=== PATIENT | female | born 1955 | race American Indian/Alaskan Native ===

== ENCOUNTER 2016-02-15 07:25 | Day surgery (SDC) | payer OTHER ==
[2016-02-15] MEDS ORDERED: ECOTRIN PO ONE ×2 (07:41→07:52)
[2016-02-15] MEDS ORDERED: NACL 0.9% 500 ML 500 ML ONE (07:52)
[2016-02-15] MEDS ORDERED: NACL 0.9% 500 ML 500 ML IV SCH (08:00)
[2016-02-15 08:12] LABS: Basophils % (Auto) 0.8 % (0.0-1.8); Eosinophils % (Auto) 1.1 % (0.0-4.3); Hematocrit 43.9 % (30.3-42.9); Hemoglobin 14.6 gm/dl (10.1-14.3); Mean Corpuscular HGB Conc 33 % (30-34); Mean Corpuscular Hemoglobin 32 pg (28-32); Mean Corpuscular Volume 95 fl (79-97); Platelet Count 208 K/mm3 (140-440); White Blood Count 4.7 K/mm3 (4.5-11.0)
[2016-02-15 08:25] LABS: INR 0.97 (0.87-1.13)
[2016-02-15 08:50] LABS: Anion Gap 17 mmol/L; BUN/Creatinine Ratio 13.33; Blood Urea Nitrogen 12 mg/dL (7-17); Calcium 10.3 mg/dL (8.4-10.2); Carbon Dioxide 23 mmol/L (22-30); Chloride 104.1 mmol/L (98-107); Glucose 96 mg/dL (65-100); Potassium 4.3 mmol/L (3.6-5.0); Sodium 140 mmol/L (137-145)
[2016-02-15] MEDS ORDERED: HEPARIN/NS 5000 UNIT/500ML(CATH LAB) 1,000 ML IR ONE (10:35)
[2016-02-15] MEDS: NITROGLYCERIN SYRINGE 3 ML ONE ×2 (11:00→11:27)
[2016-02-15] MEDS: VERSED ONE ×2 (11:04→11:19)
[2016-02-15] MEDS: SUBLIMAZE ONE ×3 (11:04→11:25)
[2016-02-15] MEDS: HEPARIN 10,000 UNITS/10 ML ONE ×2 (11:05→11:27)
[2016-02-15] MEDS: XYLOCAINE 2% INFILTRATI ONE ×2 (11:05→11:23)
[2016-02-15] MEDS: CALAN ONE ×2 (11:05→11:27)
--- NOTE | 2016-02-15 11:58 | Discharge Summary ---
Short Stay Discharge Plan Activity: advance as tolerated Weight Bearing Status: Full Weight Bearing Diet: low fat, low cholesterol, low salt Wound: keep clean and dry Special Instructions: smoking cessation, no heavy lifting (3 days) Follow up with: ZOIE HEART JR, MD [Primary Care Provider] - 7 Days CRISTO HOLLIDAY MD [Staff Physician] - 7 Days
[2016-02-15] MEDS ORDERED: NACL 0.9% 1000 ML 1,000 ML IV SCH (12:00)
--- NOTE | 2016-02-15 12:02 | Cardiac Catherization Report ---
CARDIAC CATHETERIZATION REASON FOR PROCEDURE: The patient is preoperative cardiac assessment for carotid surgery. She was referred for cardiac catheterization due to an abnormal thallium stress test. PROCEDURE: The patient was prepped and draped in a sterile fashion after informed consent. The right radial artery was entered using the Seldinger technique followed by placement of a 5-[place] hydrophilic sheath. Routine radial cocktail was administered via the sheath. Left coronary angiography was performed using a #3.5 left Y[place]asta catheter. A #4 right Yokasta was used for right coronary angiography. The right coronary catheter was also used for left ventricular angiography. The catheters were removed, sheaths removed, and hemostasis achieved using manual compression. The patient was returned to the postprocedure unit in stable condition. There were no complications. FINDINGS: HEMODYNAMICS: Left ventricle end diastolic pressure was 18, following coronary angiography. Ascending aortic pressure 143/78. There was no significant pressure gradient on pullback across the aortic valve. CORONARY ANGIOGRAPHY: There was mild diffuse coronary calcification. The left main coronary artery contained a long, tapering, 10-20% stenosis of its mid to distal segment. The left anterior descending artery contained diffuse mild atherosclerosis of its proximal and mid segments. There was mild diffuse atherosclerosis of the diagonal branches. The circumflex artery contained a 30-50% ostial stenosis, followed by mild to moderate atherosclerosis of its proximal segment. The right coronary artery was dominant. This vessel contained a 40-50% stenosis of its mid segment. There was another 40-50% stenosis of the distal AV groove segment, midway between the acute margin and the origin of the right posterior descending branch. Following that, there was diffuse mild to moderate atherosclerosis of the distal right coronary segments. It will be noted that the patient had a very small caliber right and left coronary vessels. Left ventricular systolic function was normal, ejection fraction 60-65%. CONCLUSION: 1. Diffuse mild to moderate, nonobstructive coronary artery disease as above. 2. Normal left ventricular systolic function, ejection fraction 60-65%. RECOMMENDATION: Aggressive risk factor modification and medical therapy. JOB# [id number] CA/NTS
[2016-02-15 14:32] VITALS: BP 113/60
== END 2016-02-15 14:45 | disposition home or self-care (01) ==
LOC: OPU 07:25
PROVIDERS: ATTEND Internal Medicine Cardiovascular Disease
DX: I25.10 Atherosclerotic heart disease of native coronary artery without angina pectoris (principal); I10 Essential (primary) hypertension; I65.23 Occlusion and stenosis of bilateral carotid arteries; Z82.49 Family history of ischemic heart disease and other diseases of the circulatory system; Z87.891 Personal history of nicotine dependence
CPT/HCPCS: 36415; 80048; 85025; 85610; 85730; 93005; 93010; 93458; C1894; J1644; J2250; J3010; J7040; Q9967

== ENCOUNTER 2016-02-29 17:23 | Emergency (ER) | payer OTHER ==
--- NOTE | 2016-02-29 19:59 | Emergency Department Report ---
Chief Complaint: Extremity Injury, Lower Stated Complaint: R/L FOOT PAIN/SOB Time Seen by Provider: 02/29/16 19:54 - HPI History of Present Illness: 60-year-old female comes in with sharp pain into both legs since last night worse today patient reports that the pain is in her right foot and ankle thigh and groin hurting states the left foot ankles hurting as well as the left foot. Patient reports that she is been having shortness of breathing and has been using her rescue inhaler more often and she feels she should. She reports she is out of her maintenance inhaler and needing a refill. - Exam Vital Signs: Vital Signs 02/29/16 18:16 Temperature 98.3 F Pulse Rate 85 Respiratory 18 Rate Blood Pressure 153/79 O2 Sat by Pulse 100 Oximetry Physical Exam: Alert oriented 3 she appears to be uncomfortable. Cardiovascular S1-S2 regular rate and rhythm respiratory clear to auscultation bilateral MSE screening note: Focused history and physical exam performed. Due to findings the following was ordered: He she'll be evaluated in the main ER by the MD. ED Disposition for MSE Condition: Stable
[2016-03-01 06:54] LABS: Basophils % (Auto) 0.5 % (0.0-1.8); Eosinophils % (Auto) 1.5 % (0.0-4.3); Hematocrit 42.3 % (30.3-42.9); Hemoglobin 13.9 gm/dl (10.1-14.3); Mean Corpuscular HGB Conc 33 % (30-34); Mean Corpuscular Hemoglobin 32 pg (28-32); Mean Corpuscular Volume 97 fl (79-97); Platelet Count 217 K/mm3 (140-440); Red Blood Count 4.38 M/mm3 (3.65-5.03); Red Cell Distribution Width 14.8 % (13.2-15.2); White Blood Count 4.4 K/mm3 (4.5-11.0)
[2016-03-01 06:57] LABS: Anion Gap 14 mmol/L; Blood Urea Nitrogen 10 mg/dL (7-17); Calcium 10.3 mg/dL (8.4-10.2); Carbon Dioxide 25 mmol/L (22-30); Chloride 105.8 mmol/L (98-107); Glucose 102 mg/dL (65-100); Potassium 4.2 mmol/L (3.6-5.0); Sodium 141 mmol/L (137-145)
[2016-03-01 07:02] LABS: Alanine Aminotransferase 13 units/L (7-56); Albumin 4.2 g/dL (3.9-5); Albumin/Globulin Ratio 1.4 %; Alkaline Phosphatase 66 units/L (35-129); Bilirubin,Total 0.2 mg/dL (0.1-1.2); Total Protein 7.1 g/dL (6.3-8.2)
[2016-03-01 07:04] LABS: Bilirubin,Direct < 0.2 mg/dL (0-0.2)
[2016-03-01 07:05] LABS: INR 1.04 (0.87-1.13)
[2016-03-01 07:06] LABS: Partial Thromboplastin Time 38.4 Sec. (24.2-36.6)
[2016-03-01 07:43] LABS: Bacteria,Urine 1+ /HPF (Negative); Bilirubin,Urine NEG (Negative); Blood,Urine NEG (Negative); Ketones,Urine NEG (Negative); Leukocyte Esterase,Urine NEG (Negative); Mucus,Urine FEW /HPF; Nitrite,Urine NEG (Negative); Protein,Urine <15 mg/dL mg/dL (Negative); Urobilinogen,Urine < 2.0 mg/dL (<2.0)
--- NOTE | 2016-03-01 09:34 | Emergency Department Report ---
ED General Adult HPI - General Chief complaint: Extremity Injury, Lower Stated complaint: R/L FOOT PAIN/SOB Time Seen by Provider: 02/29/16 19:54 Source: patient Mode of arrival: Ambulatory Limitations: Physical Limitation - History of Present Illness Initial comments: The patient complains of diffuse pain to include her legs particularly. She states that this is mostly bothering her right leg more than her left leg. Apparently she stated that her "legs were going out on me" in triage. However she denies any acute weakness. She denies dizziness. She denies headache. She denies vertigo. She has not noticed any increased swelling of her legs change in color or paresthesias. At the time of my encounter, she is really not complaining of any acute pain. She states that she would like to restart her gabapentin. The patient is pending carotid endarterectomy. She has had a vascular procedure of her left leg. She states that the right leg is planned after her carotid procedure. She is a regular patient of Dr. Bonds. She states that she talked to Dr. Bonds about her gabapentin in the past and he wanted to hold it for now. He does additionally have a history of dementia. -: days(s) Location: lower extremity (right greater than left) Radiation: non-radiation Severity scale (0 -10): 0 Quality: aching Consistency: intermittent Improves with: none Worsens with: none Associated Symptoms: denies other symptoms Treatments Prior to Arrival: none - Related Data Home Medications Medication Instructions Recorded Confirmed Last Taken Diltiazem [Cardizem] 30 mg PO BID 12/07/15 03/01/16 02/14/16 30mg Gabapentin 300 mg PO QHS 12/07/15 03/01/16 02/14/16 300mg Plavix 75 mg PO DAILY 12/07/15 03/01/16 02/14/16 75mg Tizanidine HCl [tiZANidine] 1 tab PO QHS 02/15/16 03/01/16 02/14/16 4mg AtorvaSTATin [Lipitor] 40 mg PO QDAY 03/01/16 03/01/16 Unknown Bupropion HCl [Bupropion HCl Sr] 150 mg PO BID 03/01/16 03/01/16 Unknown Cilostazol [Pletal] 100 mg PO BID 03/01/16 03/01/16 Unknown Previous Rx's Medication Instructions Recorded Last Taken Type Aspirin EC [Aspirin Enteric Coated 81 mg PO QDAY #30 tablet. 04/17/15 Rx TAB] 81mg Cilostazol [Pletal] 100 mg PO BID #60 tablet 04/17/15 02/14/16 Rx 100mg Gabapentin [Gralise] 300 mg PO QHS #14 tab.er.24h 03/01/16 Unknown Rx Allergies Allergy/AdvReac Type Severity Reaction Status Date / Time No Known Allergies Allergy Verified 02/29/16 18:20 ED Review of Systems ROS: Stated complaint: R/L FOOT PAIN/SOB Other details as noted in HPI Constitutional: denies: chills, fever Eyes: denies: eye pain, eye discharge, vision change ENT: denies: ear pain, throat pain Respiratory: denies: cough, shortness of breath, wheezing Cardiovascular: denies: chest pain, palpitations Endocrine: no symptoms reported Gastrointestinal: denies: abdominal pain, nausea, diarrhea Genitourinary: denies: urgency, dysuria, discharge Musculoskeletal: as per HPI. denies: back pain, joint swelling, arthralgia Skin: denies: rash, lesions Neurological: denies: headache, weakness, paresthesias Psychiatric: denies: anxiety, depression Hematological/Lymphatic: denies: easy bleeding, easy bruising ED Past Medical Hx - Past Medical History Previous Medical History?: Yes Hx Hypertension: Yes (dx 2015) Hx Heart Attack/AMI: No Hx Congestive Heart Failure: No Hx Diabetes: No Hx Arthritis: Yes Hx Headaches / Migraines: Yes Hx Asthma: No Hx COPD: No Hx Tuberculosis: No Additional medical history: high cholesterol - Surgical History Past Surgical History?: Yes Additional Surgical History: tubal ligation. left leg surgery for "clogged atreries" - Social History Smoking Status: Light Tobacco Smoker Substance Use Type: None - Medications Home Medications: Home Medications Medication Instructions Recorded Confirmed Last Taken Type Aspirin EC [Aspirin Enteric Coated 81 mg PO QDAY #30 tablet. 04/17/1502/14/16 Rx TAB] 81mg Cilostazol [Pletal] 100 mg PO BID #60 tablet 04/17/15 03/01/16 02/14/16 Rx 100mg Diltiazem [Cardizem] 30 mg PO BID 12/07/15 03/01/1617 History 30mg Gabapentin 300 mg PO QHS 12/07/15 03/01/16 02/14/16 History 300mg Plavix 75 mg PO DAILY 12/07/15 03/01/16 02/14/16 History 75mg Tizanidine HCl [tiZANidine] 1 tab PO QHS 02/15/16 03/01/16 02/14/16 History 4mg AtorvaSTATin [Lipitor] 40 mg PO QDAY 03/01/16 03/01/16 Unknown History Bupropion HCl [Bupropion HCl Sr] 150 mg PO BID 03/01/16 03/01/16 Unknown History Cilostazol [Pletal] 100 mg PO BID 03/01/16 03/01/16 Unknown History Gabapentin [Gralise] 300 mg PO QHS #14 tab.er.24h 03/01/16 Unknown Rx ED Physical Exam - General Limitations: Physical Limitation General appearance: alert, in no apparent distress - Head Head exam: Present: atraumatic, normocephalic - Eye Eye exam: Present: normal appearance, PERRL, EOMI. Absent: scleral icterus - ENT ENT exam: Present: normal exam, mucous membranes moist - Neck Neck exam: Present: normal inspection. Absent: tenderness, meningismus - Respiratory Respiratory exam: Present: normal lung sounds bilaterally. Absent: respiratory distress - Cardiovascular Cardiovascular Exam: Present: regular rate, normal rhythm. Absent: systolic murmur, diastolic murmur, rubs, gallop - GI/Abdominal GI/Abdominal exam: Present: soft, normal bowel sounds. Absent: distended, tenderness, guarding, rebound, rigid - Extremities Exam Extremities exam: Present: normal inspection, normal capillary refill, other ( feet are warm. Examination of the toes are normal bilaterally. The pulses are faintly present bilaterally. There is no signs of any acute vascular compromise.). Absent: tenderness, pedal edema, joint swelling, calf tenderness - Back Exam Back exam: Present: normal inspection - Neurological Exam Neurological exam: Present: alert, oriented X3, CN II-XII intact. Absent: motor sensory deficit - Psychiatric Psychiatric exam: Present: normal affect, normal mood - Skin Skin exam: Present: warm, dry, intact, normal color. Absent: rash ED Course Vital Signs 02/29/16 03/01/16 03/01/16 18:16 00:40 06:00 Temperature 98.3 F 97.6 F 98.4 F Pulse Rate 85 65 55 L Respiratory 18 18 18 Rate Blood Pressure 153/79 Blood Pressure 139/90 150/62 [Left] O2 Sat by Pulse 100 99 97 Oximetry - Reevaluation(s) Reevaluation #1: I spoke with Dr. Bonds. He stated it would be fine to reinitiate the patient 's gabapentin. He stated that his office would call the patient for further follow-up instructions. On reexamination the patient had no complaint of pain. She was appropriate for outpatient management. 03/01/16 11:28 ED Medical Decision Making - Lab Data Result diagrams: 03/01/16 06:28 03/01/16 06:28 Laboratory Results - last 24 hr 03/01/16 03/01/16 03/01/16 06:28 06:28 06:28 WBC 4.4 L RBC 4.38 Hgb 13.9 Hct 42.3 MCV 97 MCH 32 MCHC 33 RDW 14.8 Plt Count 217 Lymph % (Auto) 45.9 H Bennett % (Auto) 8.8 H Eos % (Auto) 1.5 Baso % (Auto) 0.5 Lymph # 2.0 Bennett # 0.4 Eos # 0.1 Baso # 0.0 Seg Neutrophils % 43.3 Seg Neutrophils # 1.9 PT 13.5 INR 1.04 APTT 38.4 H Sodium 141 Potassium 4.2 Chloride 105.8 Carbon Dioxide 25 Anion Gap 14 BUN 10 Creatinine 0.8 Estimated GFR > 60 BUN/Creatinine Ratio 12.50 Glucose 102 H Calcium 10.3 H Magnesium 2.0 Total Bilirubin Direct Bilirubin Indirect Bilirubin AST ALT Alkaline Phosphatase Troponin T < 0.010 Total Protein Albumin Albumin/Globulin Ratio TSH Free T4 Urine Color Urine Turbidity Urine pH Ur Specific Downey Urine Protein Urine Glucose (UA) Urine Ketones Urine Blood Urine Nitrite Urine Bilirubin Urine Urobilinogen Ur Leukocyte Esterase Urine WBC (Auto) Urine RBC (Auto) U Epithel Cells (Auto) Urine Bacteria (Auto) Urine Mucus 03/01/16 03/01/16 03/01/16 06:28 06:28 07:15 WBC RBC Hgb Hct MCV MCH MCHC RDW Plt Count Lymph % (Auto) Bennett % (Auto) Eos % (Auto) Baso % (Auto) Lymph # Bennett # Eos # Baso # Seg Neutrophils % Seg Neutrophils # PT INR APTT Sodium Potassium Chloride Carbon Dioxide Anion Gap BUN Creatinine Estimated GFR BUN/Creatinine Ratio Glucose Calcium Magnesium Total Bilirubin 0.2 Direct Bilirubin < 0.2 Indirect Bilirubin 0.0 AST 15 ALT 13 Alkaline Phosphatase 66 Troponin T Total Protein 7.1 Albumin 4.2 Albumin/Globulin Ratio 1.4 TSH 1.540 Free T4 1.00 Urine Color Yellow Urine Turbidity Clear Urine pH 5.0 Ur Specific Downey 1.011 Urine Protein <15 mg/dl Urine Glucose (UA) Neg Urine Ketones Neg Urine Blood Neg Urine Nitrite Neg Urine Bilirubin Neg Urine Urobilinogen < 2.0 Ur Leukocyte Esterase Neg Urine WBC (Auto) 1.0 Urine RBC (Auto) 1.0 U Epithel Cells (Auto) 2.0 Urine Bacteria (Auto) 1+ Urine Mucus Few Critical care attestation.: If time is entered above; I have spent that time in minutes in the direct care of this critically ill patient, excluding procedure time. ED Disposition Clinical Impression: PAD (peripheral artery disease) Chronic leg pain Qualifiers: Laterality: bilateral Qualified Code(s): M79.604 - Pain in right leg; M79.605 - Pain in left leg; G89.29 - Other chronic pain Disposition: DISCHARGED TO HOME OR SELFCARE Is pt being admited?: No Does the pt Need Aspirin: No Condition: Stable Instructions: Peripheral Vascular Disorders (ED) Additional Instructions: Return any acute change or worsening pain. Return any numbness or unusual tingling in your extremities. Return if your feet feel cold. Return any dizziness or neurological type symptoms. Dr. Bonds's office will call you with further instructions. Prescriptions: Gabapentin [Gralise] 300 mg PO QHS #14 tab.er.24h Referrals: ZOIE HEART JR, MD [Primary Care Provider] - 3-5 Days JUS BONDS MD [Staff Physician] - 2-3 Days Time of Disposition: 11:31
[2016-03-01 12:18] VITALS: BP 131/88
== END 2016-03-01 12:17 | disposition home or self-care (01) ==
LOC: ED 17:23
DX: I73.9 Peripheral vascular disease, unspecified (principal); M79.604 Pain in right leg; M79.605 Pain in left leg; G89.29 Other chronic pain; I10 Essential (primary) hypertension; M19.90 Unspecified osteoarthritis, unspecified site; E78.00 Pure hypercholesterolemia, unspecified; F17.200 Nicotine dependence, unspecified, uncomplicated; Z79.82 Long term (current) use of aspirin
CPT/HCPCS: 36415; 80048; 80074; 81001; 83735; 84439; 84443; 84484; 85025; 85610; 85730; 93005; 93010